=== PATIENT | female | born 2000 | race Caucasian/White ===

== ENCOUNTER 2025-08-13 19:40 | Emergency (ER) | payer BC, OTHER ==
[2025-08-13 19:48] VITALS: BP 128/74; PULSE 89
== END 2025-08-13 20:38 | disposition home or self-care (01) ==
LOC: MW.ED 19:40
DX: S90.31XA Contusion of right foot, initial encounter (principal); W20.8XXA Other cause of strike by thrown, projected or falling object, initial encounter; Y99.0 Civilian activity done for income or pay; Y92.511 Restaurant or cafe as the place of occurrence of the external cause
CPT/HCPCS: 73600; 99283; A9270